=== PATIENT | female | born 1955 | race Caucasian/White ===

== ENCOUNTER 2024-02-18 18:59 | Emergency (ER) | payer MEDICARE, SELFPAY ==
[2024-02-18 19:00] VITALS: BP 96/68
--- NOTE | 2024-02-18 19:24 | ED.GENMED ---
History of Present Illness
General
Chief Complaint: Abdominal Pain
Source: patient
Exam Limitations: none
Time Seen by Provider: 02/18/24 19:14
History of Present Illness
History of Present Illness:
See MDM
Past History
Past History
ED Past Medical History: None
ED Past Surgical History: None
Social History
Tobacco: Non-smoker
Alcohol: None
Phy Exam
Physical Exam
Physical Exam:
See MDM
Course
Orders/Labs/Results
Orders:
Orders
02/18/24 19:20
0.9% Sodium Chloride 1000 ml [Nss] 1,000 ml IV BOLUS
Ketorolac [Toradol] 30 mg IV NOW STA
Ondansetron Injectable [Zofran] 4 mg IV NOW STA
US Abdomen Complete/Upper Urgent
Comment:
Reason For Exam: RUQ pain
02/18/24 19:32
Complete Blood Count/With Diff Urgent
Comprehensive Metabolic Panel Urgent
Lipase Urgent
Abnormal Lab Results
02/18/24
19:32
WBC 12.5 H 10^3/uL
(4.8-10.8)
RBC 4.19 L 10^6/uL
(4.20-5.40)
MCH 32.2 H pg
(27.0-31.0)
MPV 11.1 H fL
(7.4-10.4)
Abs Immat Gran (auto) 0.1 H 10^3/uL
(0-0.05)
Absolute Neuts (auto) 10.8 H 10^3/uL
(1.4-6.5)
Absolute Lymphs (auto) 0.8 L 10^3/uL
(1.2-3.4)
Absolute Monos (auto) 0.8 H 10^3/uL
(0.1-0.6)
Neutrophils % 86.5 H %
(42.2-75.2)
Lymphocytes % 6.6 L %
(20.5-51.1)
Sodium 127 L mmol/L
(135-145)
Chloride 96 L mmol/L
(98-107)
Glucose 134 H mg/dl
(70-99)
AST 38 H U/L
(14-36)
02/18/24 19:32
02/18/24 19:32
Vital Signs
Initial and Last Documented VS:
Initial Vital Signs
Temp Pulse Resp BP Pulse Ox
99.4 F 76 22 96/68 100
02/18/24 19:00 02/18/24 19:00 02/18/24 19:00 02/18/24 19:00 02/18/24 19:00
Last Documented Vital Signs
Temp Pulse Resp BP Pulse Ox
99.4 F 76 22 120/62 98
02/18/24 19:00 02/18/24 19:00 02/18/24 19:00 02/18/24 21:00 02/18/24 21:00
MDM/Problems Addressed
Differential Diagnosis Includes:
HPI and MDM Narrative:
68-year-old female presenting with upper abdominal pain. She initially went to urgent care and was given a GI cocktail. Due to ongoing symptoms, she came to the emergency department. She states she has had intermittent issues like this in the
past but symptoms appear to self resolved. However, symptoms are gotten worse with food intake. She has loss of appetite
On exam, she has point tenderness to right upper quadrant. We did discuss concern for gallbladder pathology. Will obtain basic blood work, right upper quadrant ultrasound and provide Toradol
Physical exam
General: Well appearing and non-toxic
HEENT: protecting airway
Neck: appears supple
CV: No evidence of cyanosis
Resp: No accessory muscle use
Abd: Non-distended. Point tenderness to right upper quadrant. No rebound
Extremities: No deformities
Neuro: alert
Psych: Normal affect
Skin: Intact
Problems Addressed including Acute and Chronic Conditions affecting care:
1. Right upper quadrant pain
Acuity: acute
Prognosis: stable
Details: Given pain with food intake, concern for acute cholecystitis versus symptomatic cholelithiasis. Will obtain ultrasound and give Toradol
Updates
Ultrasound consistent with gallstones without evidence of cholecystitis. Discussed symptomatic gallstones with patient and outpatient referral with general surgery. Patient feels comfortable going home
Differential Diagnosis (but not limited to): Symptomatic cholelithiasis, acute calculus cholecystitis
Testing considered: CT abdomen/pelvis but will obtain right upper quadrant ultrasound first looking for gallbladder pathology
Drug therapy (if applicable): OTC meds, please see d/c instruction regarding Rx drugs
Amount and/or Complexity of Data Reviewed
Clinical info obtained from: Patient
External data reviewed: N/A
Labs I independently reviewed (but not limited to): Mild leukocytosis
Radiology: Ultrasound report reviewed
Pulse Ox: not hypoxic
EKG independently reviewed: N/A
Handmade Tile Artist: N/A
Critical Care: N/A
Risk of Complication:
Social Determinants of health: Good social support
Discussed with other providers: N/A
Escalation of Care includes Admit/Obs: After being observed in the Emergency Department, pt stable for discharge.
Occasional wrong word or 'sound a like' substitutions may have occurred due to the inherent limitations of voice recognition software. Read the chart carefully and recognize, using context, where substitutions have occurred.
*Critical Care Note
Total Time (30-74mins, 75-104mins- exclusive of procedures): Not Applicable
ED Attending Note
-
Portions of this chart may have been created with voice recognition software.� Occasional wrong word or��sound alike� substitutions may have occurred due to the inherent limitations of voice recognition software.
Discharge Plan
Departure
Patient Disposition: Home (Routine Discharge)
Date of Disposition: 02/18/24
Time of Disposition: 21:22
Patient with high blood pressure during this ER visit?: No
Discharge Problem:
Symptomatic cholelithiasis
Instructions: Gallstones (DC)
Prescriptions:
New
diclofenac potassium 50 mg tablet
50 mg PO BID Qty: 20 0RF
ondansetron 4 mg Tablet,Disintegrating
4 mg PO BIDPRN PRN (Reason: nausea/vomiting) Qty: 10 0RF
Referrals:
Kaden Crespo MD [Active] -
Kuldip Tracy MD [Family Provider] -
Activity Restrictions/Additional Instructions:
As we discussed, your symptoms appear to be related to gallstones. There is no evidence from the ultrasound today that your gallbladder is infected. However, please return if your symptoms worsen or if you develop fevers. In the meantime, please
follow-up with a general surgeon to discuss your symptoms and possibly removing your gallbladder at a later date.
Interventions
Interventions:
*Risk Screen - Suicide Last Done: 02/18/24 19:00
*General Assessment Last Done: 02/18/24 19:38
*Neglect/Abuse Screening Last Done: 02/18/24 19:00
*ED COVID-19 Vaccine History Last Done: 02/18/24 19:38
[facility] Assessment Last Done: 02/18/24 19:38
Discharge Date and Time
Print Language: [id number]
[2024-02-18] MEDS: TORADOL 30 MG IV (19:33)
[2024-02-18] MEDS: ZOFRAN 4 MG IV (19:33)
[2024-02-18] MEDS: NSS 1000 IV (19:33)
[2024-02-18 19:37] VITALS: BP 133/63; BMI 23.2
[2024-02-18 19:45] LABS: % Basophils 0.2 % (0-2); % Eosinophils 0.2 % (0-6); % Immature Granulocytes 0.5 % (0-0.5); % Lymphocytes 6.6 % (20.5-51.1); % Neutrophils 86.5 % (42.2-75.2); Absolute Immature Granulocytes 0.1 10^3/uL (0-0.05); Absolute Lymphocytes 0.8 10^3/uL (1.2-3.4); Absolute Monocytes 0.8 10^3/uL (0.1-0.6); Absolute Neutrophils 10.8 10^3/uL (1.4-6.5); Hemoglobin 13.5 g/dL (12.0-16.0); Mean Corp Hgb Conc. 35.5 g/dL (33.0-37.0); Mean Corpuscular Hgb 32.2 pg (27.0-31.0); Mean Corpuscular Volume 90.7 fL (81.0-99.0); Mean Platelet Volume 11.1 fL (7.4-10.4); Nucleated Red Blood Cells % 0 %; Platelet Count 201 10^3/uL (130-400); Red Blood Cell Count 4.19 10^6/uL (4.20-5.40); Red Cell Dist. Width 11.9 % (11.5-14.5); White Blood Cell Count 12.5 10^3/uL (4.8-10.8)
[2024-02-18 19:58] LABS: ALT (SGPT) 20 U/L (0-35); AST (SGOT) 38 U/L (14-36); Albumin 4.5 g/dl (3.5-5.0); Alkaline Phosphatase 63 U/L (38-126); Blood Urea Nitrogen 9 mg/dl (7-17); Calcium 9.5 mg/dl (8.4-10.2); Carbon Dioxide 24 mmol/L (22-30); Chloride 96 mmol/L (98-107); Estimated Creatinine Clearance 83 ml/min; Glucose 134 mg/dl (70-99); Lipase 70 U/L (23-300); Potassium 3.9 mmol/L (3.5-5.1); Sodium 127 mmol/L (135-145); Total Bilirubin 1.1 mg/dl (0.2-1.3); Total Protein 6.8 g/dl (6.3-8.2); eGFR > 60.00
[2024-02-18 20:00] VITALS: BP 130/66
[2024-02-18 21:00] VITALS: BP 120/62
== END 2024-02-18 21:50 | disposition home or self-care (01) ==
LOC: EMR 18:59
PROVIDERS: EMERGENCY PHYSICIAN Student in an Organized Health Care Education/Training Program; FAMILY PHYSICIAN Internal Medicine
DX: K80.20 Calculus of gallbladder without cholecystitis without obstruction (principal)
CPT/HCPCS: 99284; 96374; 96375; 96361; 76700; 80053; 83690; 85025